=== PATIENT | female | born 1990 | race Hispanic/Latino ===

== ENCOUNTER 2018-05-18 19:47 | Emergency (ER) | payer BC, OTHER ==
[~2018-05-18] VITALS: Ht 157.5 cm; Wt 79.4 kg
[2018-05-18 20:32] VITALS: BP 127/84
[2018-05-18] MEDS ORDERED: CIPR7.5D OT (23:14)
--- NOTE | 2018-05-18 23:15 | ER.PDOC ---
General Chief Complaint: Earache Stated Complaint: EARACHE Time seen by MD: 23:00 Source: patient Exam Limitations: no limitations History of Present Illness Initial Comments Left ear pain for several days. Had right ear outer infection 2 weeks ago. wears ear plugs at work every day. no ear dc Timing/Duration: gradual Severity: mild Location of Pain: (L) Ear Allergies: Coded Allergies: banana (Unverified Allergy, Unknown, MOUTH ITCHES, 05/18/18) Uncoded Allergies: NKDA (Allergy, Unknown, 08/03/13) Home Meds No Active Prescriptions or Reported Meds Past Medical History Medical History: no pertinent history Surgical History: no surgical history LMP (females 10-50): last week Social History Smoking: non-smoker Alcohol Use: occassionally Drug Use: none Reviewed Nursing Reviewed: Vital Signs, Abn. Noted, Nursing Assessment Constitutional: denies no symptoms reported, denies see HPI, denies chills, denies diaphoresis, denies fever, denies malaise, denies weakness, denies other Eyes: denies no symptoms reported, denies see HPI, denies blindness, denies blurred vision, denies drainage, denies decreased acuity, denies foreign body sensation, denies inflammation, denies pain, denies photophobia, denies previous injury, denies shadows, denies tunnel vision, denies vision change, denies contact lenses, denies glasses, denies other Nose: denies no symptoms reported, denies see HPI, denies clots, denies congestion, denies epistaxis, denies pain, denies bloody discharge, denies clear discharge, denies purulent discharge, denies serosanguinous discharge, denies previous injury, denies other Mouth: denies no symptoms reported, denies see HPI, denies clots, denies loose teeth, denies pain, denies swelling, denies bloody discharge, denies clear discharge, denies purulent discharge, denies serosanguinous discharge, denies previous injury, denies other Throat: denies no symptoms reported, denies see HPI, denies pain, denies swelling, denies discharge, denies neck stiffness, denies hoarse, denies aphonia , denies muffled, denies painful swallowing, denies difficulty with fluids, denies previous injury, denies other Respiratory: denies no symptoms reported, denies see HPI, denies cough, denies orthopnea, denies shortness of breath, denies stridor, denies wheezing, denies other Cardiovascular: denies no symptoms reported, denies see HPI, denies chest pain , denies edema, denies palpitations, denies syncope, denies other Gastrointestinal: denies no symptoms reported, denies see HPI, denies abdominal pain, denies constipation, denies diarrhea, denies nausea, denies vomiting, denies other All Other Systems: Reviewed and Negative Physical Exam General Appearance: alert, no distress Ears: auricle, pain w/movement aucricle, erythema TM's: nml Mouth/Throat: lips/gums nml, pharynx nml Nose: nml inspection Head/Neck: atraumatic, neck nml inspection Eyes: eyes nml inspection, PERRL, no nystagmus Resp/CVS: no resp distress, lungs clear, heart sounds nml, reg. rate & rhythm Abdomen: non-tender, no organomegaly Skin Exam: Normal Color, Warm/Dry NEURO/PSYCH: oriented X3, mood/effect nml Departure Time of Disposition: 23:10 Disposition: 01 HOME, SELF-CARE Impression: Primary Impression: Otitis externa Condition: Stable Patient Instructions: Otitis Externa Referrals: PCP,UNKNOWN (PCP) PRIMARY CARE PROVIDER Scripts Ciprofloxacin Hcl/Dexameth (CIPRODEX OTIC SUSPENSION) 7.5 Ml Drops.susp 4 DROP OT BID PRN for infection, #7.5 MILLILITER Prov: PREET DE MD 05/18/18 Duration or Time Spent with Pa: 12 PREET DE MD May 18, 2018 23:15
[2018-05-18] MEDS ORDERED: MOTRIN ONE (23:18)
[2018-05-18 23:24] VITALS: BP 127/84
[2018-05-18] MEDS ORDERED: MOTRIN PO PRN (23:30)
== END 2018-05-18 23:31 | disposition home or self-care (01) ==
LOC: ER 19:47
DX: H60.92 Unspecified otitis externa, left ear (principal); Z91.018 Allergy to other foods
CPT/HCPCS: 99283

== ENCOUNTER 2019-09-21 05:25 | Inpatient (IN) | payer BC ==
[2019-09-21] VITALS (7 sets, daily range): BP systolic 115–136; BP diastolic 45–81
[~2019-09-21] VITALS: Ht 157.5 cm; Wt 86.0 kg
[~2019-09-21 05:25] MED LIST: CIPR7.5D OT
[2019-09-21 05:52] LABS: BILIRUBIN,URINE NEGATIVE (NEGATIVE); UROBILINOGEN,URINE NORMAL (NEGATIVE)
[2019-09-21] MEDS ORDERED: NS 1000ML 1,000 ML IV STA (05:58)
[2019-09-21] MEDS ORDERED: TORADOL IV STA (05:58)
[2019-09-21] MEDS ORDERED: ZOFRAN 4 MG/2 ML VIAL IV STA (05:58)
[2019-09-21 05:59] LABS: APPEARANCE,URINE CLOUDY (CLEAR); UA COLOR YELLOW (YELLOW)
[2019-09-21] MEDS ORDERED: ZOFRAN 4 MG/2 ML VIAL ONE ×2 (06:02→08:29)
[2019-09-21] MEDS ORDERED: NS 1000ML 1,000 ML ONE (06:02)
[2019-09-21] MEDS ORDERED: TORADOL ONE (06:02)
[2019-09-21 06:16] LABS: BASOPHIL % 0.1 % (0.0-0.2); EOSINOPHIL % 0.2 % (0.0-5.0); LYMPHOCYTES # 0.8 10^3/uL (1.0-4.8); LYMPHOCYTES % 4.9 % (24.0-44.0); MONOCYTES # 0.7 10^3/uL (0.3-0.8); MONOCYTES % 4.4 % (5.0-12.0); NEUTROPHIL # 14.8 10^3/uL (1.8-7.7); NEUTROPHILS % 90.2 % (41.0-85.0); RED CELL DISTRIBUTION WIDTH 12.1 % (11.5-14.5)
[2019-09-21 06:31] LABS: CARBON DIOXIDE 26.9 mmol/L (20.0-32)
--- NOTE | 2019-09-21 06:38 | ER.PDOC ---
General Chief Complaint: Requesting Medical Care Stated Complaint: ABD PAIN Time seen by MD: 06:37 Source: patient Exam Limitations: no limitations History of Present Illness Initial Comments Nausea/vomiting/diarrhea and abdominal pain. No fever or chills. Severity/Quality: moderate Abdominal Pain Onset Location: Generalized Abdomen Associated Symptoms (vomiting): freq vomitng Associated Symptoms (diarrhea): watery Allergies: Coded Allergies: banana (Unverified Allergy, Unknown, MOUTH ITCHES, 05/18/18) Uncoded Allergies: NKDA (Allergy, Unknown, 08/03/13) Home Meds Active Scripts Ciprofloxacin Hcl/Dexameth (CIPRODEX OTIC SUSPENSION) 7.5 Ml Drops.susp, 4 DROP OT BID PRN for infection, #7.5 MILLILITER Prov:PREET DE MD 05/18/18 Vital Signs First Vital Signs Date Time Temp Pulse Resp B/P (MAP) Pulse Ox O2 Delivery O2 Flow Rate FiO2 09/21/19 05:39 98.0 89 18 99 Last Vital Signs Date Time Temp Pulse Resp B/P (MAP) Pulse Ox O2 Delivery O2 Flow Rate FiO2 09/21/19 05:39 98.0 89 18 09/21/19 05:39 99 Past Medical History Medical History: no pertinent history Surgical History: no surgical history Social History Alcohol Use: occassionally Drug Use: none Constitutional: no symptoms reported Respiratory: no symptoms reported Cardiovascular: no symptoms reported Gastrointestinal: see HPI Genitourinary: no symptoms reported All Other Systems: Reviewed and Negative Physical Exam General Appearance: No Apparent Distress, WD/WN Neck: Non-Tender, Full Range of Motion, Supple, Normal Inspection Respiratory: chest non-tender, lungs clear, normal breath sounds, no respira tory distress, no accessory muscle use Cardiovascular: Normal Peripheral Pulses, Regular Rate, Rhythm, No Edema, No Gallop, No JVD, No Murmur Gastrointestinal: Normal Bowel Sounds, No Organomegaly, No Pulsatile Mass, Guarding, Tenderness (generalized) Back: Normal Inspection, No CVA Tenderness, No Vertebral Tenderness Extremities: Normal Range of Motion, Non-Tender, Normal Inspection, No Pedal Edema, No Calf Tenderness, Normal Capillary Refill, Pelvis Stable 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 (09/21/19 05:58) 0.9 % Sodium Chloride (Ns 1000ml) (09/21/19 05:58) Ketorolac Tromethamine (Toradol) (09/21/19 05:58) Ondansetron Hcl/Pf (Zofran 4 Mg/2 Ml Via (09/21/19 05:58) Urine Culture (09/21/19 05:45) 0.9 % Sodium Chloride (Ns 1000ml) (09/21/19 06:02) Ondansetron Hcl/Pf (Zofran 4 Mg/2 Ml Via (09/21/19 06:02) Ketorolac Tromethamine (Toradol) (09/21/19 06:02) Blood Culture (09/21/19 07:29) Lactic Acid(Ml) (09/21/19 07:29) Vital Signs Date Time Temp Pulse Resp B/P (MAP) Pulse Ox O2 Delivery O2 Flow Rate FiO2 09/21/19 05:39 98.0 89 18 09/21/19 05:39 98.0 89 18 99 Administered Medications Medications (Trade) Dose Ordered Sig/Mare Route PRN Reason Start Time Stop Time Status Last Admin Dose Admin Ketorolac Tromethamine (Toradol) 30 mg STAT STAT IV 09/21/19 05:58 09/21/19 06:00 DC 09/21/19 06:24 30 MG Ondansetron HCl (Zofran 4 Mg/2 ml Vial) 4 mg STAT STAT IV 09/21/19 05:58 09/21/19 06:00 DC 09/21/19 06:25 4 MG Sodium Chloride 1,000 ml @ 1,200 mls/hr Q50M STAT IV 09/21/19 05:58 09/21/19 06:47 DC 09/21/19 06:24 1,200 MLS/HR Laboratory Tests Test 09/21/19 05:45 09/21/19 06:11 09/21/19 06:27 Urine Collection Type VOID Urine Color YELLOW (YELLOW) Urine Appearance CLOUDY (CLEAR) H Urine Bilirubin NEGATIVE MG/DL (NEGATIVE) Urine Ketones NEGATIVE (NEGATIVE) Urine Specific Morgan 1.025 (1.005-1.035) Urine pH 5 (5.0-6.0) Urine Protein 15 mg/dL (NEGATIVE) H Urine Urobilinogen NORMAL (NEGATIVE) Urine Nitrate NEGATIVE (NEGATIVE) Urine Leukocyte Esterase NEGATIVE (NEGATIVE) Urine Blood 25 1+ (NEGATIVE) H Urine RBC 2-5 RBC/HPF (NONE SEEN) Urine WBC 0-2 WBC/HPF (0-2) Urine Squamous Epithelial Cells FEW #/HPF (FEW) Urine Bacteria MANY (NONE SEEN) H Urine Glucose NORMAL (NEGATIVE) Urine HCG, Qualitative NEGATIVE (NEGATIVE) White Blood Count 16.4 10^3/uL (4.5-11.0) H Red Blood Count 4.32 10^6/uL (4.00-5.20) Hemoglobin 13.4 g/dL (12.0-15.0) Hematocrit 38.3 % (36.0-46.0) Mean Corpuscular Volume 88.7 fL (78-100) Mean Corpuscular Hemoglobin 31.0 pg (26-34) Mean Corpuscular Hemoglobin Concent 35.0 g/dL (33-37) Red Cell Distribution Width 12.1 % (11.5-14.5) Platelet Count 219 10^3/uL (150-400) Mean Platelet Volume 10.9 fL (7.8-11.0) Neutrophils (%) (Auto) 90.2 % (41.0-85.0) *H Lymphocytes (%) (Auto) 4.9 % (24.0-44.0) *L Monocytes (%) (Auto) 4.4 % (5.0-12.0) L Neutrophils # (Auto) 14.8 10^3/uL (1.8-7.7) H Lymphocytes # (Auto) 0.8 10^3/uL (1.0-4.8) L Monocytes # (Auto) 0.7 10^3/uL (0.3-0.8) Absolute Immature Granulocyte (auto 0.04 10^3 u/L (0-2) Immature Granulocytes % 0.20 % (0.00-0.50) Eosinophils % 0.2 % (0.0-5.0) Basophils % 0.1 % (0.0-0.2) Basophils # 0.0 10^3/uL (0.0-0.1) Eosinophil Count 0.0 10^3/uL (0.0-0.2) Prothrombin Time 10.2 SEC (9.4-11.5) Prothrombin Time INR (Non-Therap) 1.0 Activated Partial Thromboplast Time 24.2 SEC (24.67-30.72) Sodium Level 136 mmol/L (132-145) Potassium Level 4.1 mmol/L (3.6-5.2) Chloride Level 102.0 mmol/L (96-109) Carbon Dioxide Level 26.9 mmol/L (20.0-32) Anion Gap 11.2 Blood Urea Nitrogen 11 mg/dL (7-18) Creatinine 0.77 mg/dL (0.59-1.40) Estimated GFR () 108.0 (>/=60) BUN/Creatinine Ratio 14.0 Glucose Level 119 mg/dL (70-110) H Calcium Level 9.0 mg/dL (8.4-10.5) Total Bilirubin 0.4 mg/dL (0.2-1.0) Aspartate Amino Transferase (AST) 12 U/L (0-35) Alanine Aminotransferase (ALT) 20 U/L (12-78) Alkaline Phosphatase 82 U/L (50-136) Total Protein 7.1 g/dL (6.4-8.2) Albumin 4.0 g/dL (3.4-5.0) Globulin 3.1 Amylase Level 136 U/L (25-115) H Lipase 116 U/L (114-286) Helicobacter pylori Screen POSITIVE (NEGATIVE) Differential Total Cells Counted 100 #CELLS Segmented Neutrophils 88 % (31-76) H Lymphocytes 10 % (25-36) L Monocytes 2 % (3-9) L Differential Comment NORMAL Platelet Estimate ADEQUATE Platelet Morphology NORMAL Blood Morphology Comment NORMAL MORPHOLOGY EKG/XRAY/CT/US CT Comments: Findings consistent with acute appendicitis without rupture or abscess. Departure Time of Disposition: 07:37 Disposition: 01 HOME, SELF-CARE Impression: Primary Impression: Acute appendicitis Additional Impressions: Gastroenteritis UTI (urinary tract infection) Condition: Stable Referrals: PCP,UNKNOWN (PCP) PRIMARY CARE PROVIDER Comments Admitted to Dr. Maldonado and spoke with Dr. Lopez who took patient to Surgery. Duration or Time Spent with Pa: 45 mins Problem Qualifiers Primary Impression: Acute appendicitis Acute appendicitis type: unspecified acute appendicitis type Qualified Codes: K35.80 - Unspecified acute appendicitis Additional Impressions: UTI (urinary tract infection) Urinary tract infection type: site unspecified Hematuria presence: with hematuria Qualified Codes: N39.0 - Urinary tract infection, site not specified; R31.9 - Hematuria, unspecified CORIN HAN MD Sep 21, 2019 06:38
[2019-09-21 06:43] LABS: DIFFERENTIAL COMMENT NORMAL; LYMPHOCYTE 10 % (25-36); MONOCYTE 2 % (3-9); SEGMENTED NEUTROPHILS 88 % (31-76)
--- NOTE | 2019-09-21 07:15 | DIREP ---
PROCEDURE:CT ABDOMEN/PELVIS W/ CONTRAST COMPARISON:None. INDICATIONS:Generalized abdominal pain TECHNIQUE:Axial images were created through the abdomen and pelvis with non-ionic intravenous contrast material. Oral contrast was administered. Sagittal and coronal reconstructions were performed from source images. FINDINGS: LUNG BASES:Normal. No visible pulmonary or pleural disease. LIVER:Normal. No significant liver lesions are identified. BILIARY:Normal. No visible dilatation or calcification. PANCREAS:Normal. No lesion, fluid collection, ductal dilatation, or atrophy. SPLEEN:Normal. No enlargement or focal lesion. ADRENALS:Normal. No mass or enlargement. URINARY TRACT:Normal. No focal lesions or hydronephrosis. AORTA/VASCULAR:Normal. No aneurysm. RETROPERITONEUM:Normal. No mass or adenopathy. BOWEL/MESENTERY:Appendix is dilated with thickened and enhancing wall measuring 12 mm in diameter consistent with acute appendicitis. No free air or free fluid to suggest perforation. No bowel obstruction. There is mild wall thickening of the ascending colon and transverse colon may be secondary to poor distention or colitis. and increased ABDOMINAL WALL:Normal. No mass or hernia. PELVIC ORGANS:3.2 cm left ovarian probable functional cyst. BONES:Normal for age. No bony lesion or acute fracture. OTHER:Negative. CONCLUSION: 1. Findings consistent with acute appendicitis without rupture or abscess. Equivocal colitis. Dictated by: Blue Angulo M.D. on 09/21/2019 at 07:10 AM
--- NOTE | 2019-09-21 07:36 | NUR ---
RADHA DOCTOR GUILLE SPOKE WITH RADHA WILL SEE PATIENT AND WANTS EHABDOULAYEIEME TO ADMIT AND HER WILL CONSULT.
--- NOTE | 2019-09-21 07:36 | NUR ---
NATALIIA TERAN MBA SPOKE WITH DOCTOR WILLIAM WILL ADMIT.
--- NOTE | 2019-09-21 07:42 | NUR ---
RITAMED HERE TO SEE PATIENT.
[2019-09-21] MEDS ORDERED: LACTATED RINGERS 1,000 ML IV STA (08:01)
[2019-09-21] MEDS ORDERED: ZOSYN 3.375 GM 3.375 GM in NS 100ML 100 ML IV STA (08:01)
[2019-09-21] MEDS ORDERED: LACTATED RINGERS 1,000 ML ONE (08:08)
[2019-09-21] MEDS ORDERED: NS 100ML 100 ML IV ONE (08:10)
--- NOTE | 2019-09-21 08:23 | PRM.CONS ---
Consultation Reason for Consult: Reason for Consultation: Abdominal pain, vomiting, diarrhea History of Present Illness History of Patient Comments The patient is complaining of abdominal pain, vomiting and diarrhea that started last night. Pain is diffuse but is slightly worse in the right lower quadrant. Increased on movement. She has vomited several times as well. Also had several loose bowel movements. She initially thought that she had food poisoning, but the symptoms have not improved. Review of Systems Constitutional: Fever, Chills, Sweats, Weakness, Malaise, Other Eyes: No: Pain, Vision change, Conjunctivae inflammation, Eyelid inflammation, Other, Redness ENT: No: Ear pain, Ear discharge, Nose pain, Nose discharge, Nose congestion, Mouth pain, Mouth swelling, Throat pain, Throat swelling, Other Respiratory: No: Cough, Dry, Shortness of breath, SOB with excertion, Wheezing, Hemoptysis, Pleuritic Pain, Sputum, Wheezing, Other Cardiovascular: No: Chest Pain, Palpitations, Orthopnea, Paroxysmal Noc. Dyspnea, Edema, Lt Headedness, Other Gastrointestinal: Nausea, Vomiting, Abdominal Pain, Diarrhea, Constipation, Melena, Hematochezia, Other Genitourinary: No Dysuria, No Frequency, No Incontinence, No Hematuria, No Retention, No Other Musculoskeletal: No: other, neck pain, shoulder pain, arm pain, back pain, hand pain, leg pain, foot pain Skin: No: Rash, Lesions, Jaundice, Bruising, Other Neurological: No: Weakness, Numbness, Incoordination, Change in speech, Confusion, Seizures, Other Other LMP one month ago. Regular Allergies: Coded Allergies: banana (Unverified Allergy, Unknown, MOUTH ITCHES, 05/18/18) Uncoded Allergies: NKDA (Allergy, Unknown, 08/03/13) Scheduled PRN Ciprofloxacin Hcl/Dexameth (Ciprodex Otic Suspension), 4 DROP OT BID PRN for infection VTE VTE Risk Score VTE Risk: Score 0-1 = Low Risk (Aggressive mobilization; early ambulation; no VTE prophylaxis required) Score 2: Moderate Risk (Intermittent/Pneumatic Compression Device OR Lovenox/Heparin/Coumadin) Score 3-4: High Risk (Intermittent/Pneumatic Compression Device AND Lovenox/Heparin/Coumadin) Score > or =5: Highest Risk (Intermittent/Pneumatic Compression Device AND Lovenox/Heparin/Coumadin) Antico:Hep/LMWH/Coum/Xarelto: No Mechanical device ordered: No Assessment/Plan Assessment/Plan Assessment/Plan Afebrile Vital signs are stable. Abdomen is not distended. It is soft. Mild tenderness in the right lower quadrant. No guarding or rebound. CT shows acute appendicitis with dilatation of the appendix to 12 mm. WBC is elevated to 16. Patient History: Alzheimer's disease Unknown Plan For lap appendectomy IV Zosyn given test negative. EFRAIN GARCIA MD Sep 21, 2019 08:23
[2019-09-21] MEDS ORDERED: LIDOCAINE 2% VIAL ONE (08:27)
[2019-09-21] MEDS ORDERED: ZEMURON IV ONE (08:28)
[2019-09-21] MEDS ORDERED: QUELICIN ONE (08:28)
[2019-09-21] MEDS ORDERED: SUBLIMAZE ONE (08:28)
[2019-09-21] MEDS ORDERED: DIPRIVAN IV ONE (08:28)
[2019-09-21] MEDS ORDERED: SODIUM CHLORIDE IR ONE (08:29)
[2019-09-21] MEDS ORDERED: DECADRON ONE (08:29)
[2019-09-21] MEDS ORDERED: NEOSTIGMINE ONE (08:29)
[2019-09-21] MEDS ORDERED: DILAUDID ONE (08:39)
[2019-09-21] MEDS ORDERED: SODIUM CHLORIDE IRR BAG 1,000 ML ONE (09:34)
[2019-09-21] MEDS ORDERED: GENTAMICIN 80 MG/NS 100 ML PB 100 ML IV ONE (09:34)
[2019-09-21] MEDS ORDERED: XOPENEX IH PRN (10:30)
[2019-09-21] MEDS ORDERED: DILAUDID IV PRN (10:30)
[2019-09-21] MEDS ORDERED: LACTATED RINGERS 1,000 ML SCH (10:30)
[2019-09-21] MEDS ORDERED: DEMEROL IV PRN (10:30)
[2019-09-21] MEDS ORDERED: PHENERGAN IV PRN (10:30)
[2019-09-21] MEDS ORDERED: SUBLIMAZE IV PRN (10:30)
[2019-09-21] MEDS ORDERED: LORA10TA75 PO (10:50)
[2019-09-21] MEDS ORDERED: ALBU8.5H7 IH (10:50)
--- NOTE | 2019-09-21 11:05 | NUR ---
SEE SPECIAL VS RECORD IN CHART
--- NOTE | 2019-09-21 11:05 | NUR ---
SEE SPECIAL VS RECORD IN CHART Addendum: 09/21/19 at 1750 by Kelsi Pascual RN - OB/L&Carlos/ALYSSA RINCON Amended: Links added.
--- NOTE | 2019-09-21 11:05 | NUR ---
TO ROOM 330 VIA OR AND RECEIVED REPORT OF PT. S/O PRESENT. VS AND ASSESSMENT COMPLETED.
--- NOTE | 2019-09-21 11:20 | NUR ---
SO GIVING SPRITE AND REPORTS 5/10 PAIN
[2019-09-21] MEDS ORDERED: ZOFRAN 4 MG/2 ML VIAL IV PRN (11:30)
[2019-09-21] MEDS ORDERED: NORCO 5MG PO PRN (11:30)
--- NOTE | 2019-09-21 11:35 | NUR ---
RESTING QUIETLY IN BED. SITTING UP IN BED TALKING WITH S/O AND NURSE. REPORTS 5/10 PAIN
--- NOTE | 2019-09-21 11:39 | OPH ---
DATE OF SURGERY: 09/21/2019 PREOPERATIVE DIAGNOSIS: Acute appendicitis. POSTOPERATIVE DIAGNOSIS: Acute appendicitis. PROCEDURE: Laparoscopic appendectomy. SURGEON: Dr. Maged Lopez. ANESTHESIA: General with endotracheal intubation. JUSTIFICATION FOR PROCEDURE: The patient was admitted via the Emergency Room with the complaint of abdominal pain, nausea and vomiting. A CT scan was done that showed acute appendicitis with the appendix dilated at 12 mm. There was no perforation. The WBC count was elevated to 16,000. The diagnosis was discussed with the patient. Laparoscopic appendectomy was offered as a treatment. The procedure was explained in detail. Risks and benefits of the operation were discussed. These included, but were not limited to bleeding, infection, nonhealing of the wound, possible need for open operation and possible complications such as vascular and bowel injury. The patient had the opportunity to ask questions. These were answered to her satisfaction. The patient agreed to proceed with the operation. DESCRIPTION OF PROCEDURE: After general anesthesia was administered, a Pierce catheter was inserted in the urinary bladder and clear urine was obtained. The abdominal wall was prepared with ChloraPrep and draped. Initial incision was made above the umbilicus in the midline using a #15 blade. Incision was deepened. Subcutaneous fat was divided and linea alba was identified. Incision was made in the linea alba to expose the peritoneum. The peritoneal membrane was held between 2 hemostats and opened with Metzenbaum scissors. A Finger was introduced into the opening to make sure there were no adhesions. There were none. Stay sutures of 0 Vicryl were applied to each side of the opening in linea alba. Joseph port was introduced into the peritoneal cavity and tied in place with Vicryl stay sutures. The obturator was removed and carbon dioxide insufflation was started with a pressure set at 15 mm and high flow. A 5 mm 0-degree laparoscope was introduced through the Joseph port. The operative findings were as follows: The appendix was inflamed. There was a small amount of thin exudative fluid in the right lower quadrant. All the fluid was suctioned out. The appendix was pre-ileal in position. The patient was placed in deep Trendelenberg position with the left side down. Appropriate precautions were taken to protect the pressure areas. A 5 mm port was inserted in the supraumbilical region under direct vision. Another 5 mm port was inserted in the left lower quadrant under direct vision. A [place] grasping forceps was introduced through the suprapubic port and applied to the mesentery of the appendix. The mesoappendix was then carefully divided using Harmonic scalpel. The base of the appendix was completely freed of any fat. An Endoloop was passed through the umbilical port and was tied at the level of the appendix and cecal confluence. Two more Endoloops were similarly applied. The appendix was then divided between the distal most and middle suture. An Endopouch was passed through the umbilical port and opened and the appendix was allowed to fall into it. The appendix was then removed. The camera was introduced through the umbilical port. The patient was placed in neutral position. The right lower quadrant was irrigated with normal saline. All the fluid was suctioned out. The 5 mm ports were removed under direct vision. The Jsoeph port and camera were removed and carbon dioxide was allowed to escape. The defect in linea alba was closed with interrupted sutures of 0 Vicryl. Wound was irrigated with normal saline. A total of 30 mL of 0.25% Marcaine was infiltrated in the skin edges. Skin was approximated with nicolas. The patient tolerated the procedure well and was extubated and transferred to recovery in stable condition. ESTIMATED BLOOD LOSS: 2 mL. SPECIMEN: Appendix. Maged Lopez MD DR: /mili JOB# [id number] TAYA
--- NOTE | 2019-09-21 11:50 | NUR ---
SITTING UP IN BED EATING POPSICLE. REPORTS PAIN 5/10
--- NOTE | 2019-09-21 12:05 | NUR ---
SITTING UP IN BED WATCHING TV AND TALKING WITH S/O AND DRINKING SPRITE. REPORTS 5/10 PAIN
--- NOTE | 2019-09-21 12:14 | NUR ---
PT SITTING UP IN BED TALKING WITH S/O. D FOSTER FROM RT PRESENT PERFORMING IS PROCEDURE WITH TEACHING. PT VOICED UNDERSTANDING. DRINKING SPRITE
--- NOTE | 2019-09-21 13:00 | NUR ---
ASSISTED TO BR AND VOIDED CL YELLOW URINE.
--- NOTE | 2019-09-21 13:30 | NUR ---
AMB IN ROOM WITH ASSIST WITHOUT DIFFICULTY.
--- NOTE | 2019-09-21 13:55 | NUR ---
RESTING QUIETLY IN BED. EYES CLOSED AND RESP UNLABORED. DENIES COMPLAINTS. PAIN 0/10.
[2019-09-21] MEDS: HNS 1000ML/KCL 20MEQ 1,000 ML IV SCH (13:59)
[2019-09-21] MEDS: ZOSYN 3.375 GM 3.375 GM in NS 100ML 100 ML IV SCH ×2 (14:49→20:17)
[2019-09-21] MEDS: NORCO 5MG PO PRN ×2 (14:59→20:17)
--- NOTE | 2019-09-21 14:59 | NUR ---
NORCO 5MG PO PER PT REQUEST FOR ABD CRAMPING. PAIN 05/10
--- NOTE | 2019-09-21 15:30 | NUR ---
PT SITTING UP IN BED TALKING WITH VISITOR. REPORT PAIN 2/10. UP TO BR. VOIDED 250CC CL YELLOW URINE
--- NOTE | 2019-09-21 17:00 | NUR ---
SUPPER TRAY SERVED. VS TAKEN. PT DENIES COMPLAINTS
--- NOTE | 2019-09-21 18:00 | NUR ---
SITTING UP IN BED TALKING ON PHONE. DENIES COMPLAINTS
--- NOTE | 2019-09-21 20:51 | PCM.HP ---
History of Present Illness Hx of Present Illness Abdominal pain, vomiting and diarrhea. The patient has been having abdominal pain for the last 24 hours or so. All over the abdomen. Worse in the right lower quadrant. Has vomited several times and also had multiple loose stools. Past Medical History Hx Last Menstrual Period: 2018 Travel History EBOLA RISK:Travel to/contact w: No Is pt experiencing any Ebola s: Yes Review of Systems Constitutional: Fever, Chills, Sweats, Weakness, Malaise, Other Allergies: Coded Allergies: banana (Unverified Allergy, Unknown, MOUTH ITCHES, 05/18/18) Uncoded Allergies: NKDA (Allergy, Unknown, 08/03/13) Scheduled Loratadine (Claritin), 1 TAB PO QD Scheduled PRN Albuterol Sulfate (Proair Hfa), 8.5 GM IH PRN PRN for SHORTNESS BREATH Discontinued Medications Ciprofloxacin Hcl/Dexameth (Ciprodex Otic Suspension), 4 DROP OT BID PRN for i nfection Discontinued Reason: Discontinue VTE VTE Risk Total Score: 3 VTE Risk Score VTE Risk: Score 0-1 = Low Risk (Aggressive mobilization; early ambulation; no VTE prophylaxis required) Score 2: Moderate Risk (Intermittent/Pneumatic Compression Device OR Lovenox/Heparin/Coumadin) Score 3-4: High Risk (Intermittent/Pneumatic Compression Device AND Lovenox/Heparin/Coumadin) Score > or =5: Highest Risk (Intermittent/Pneumatic Compression Device AND Lovenox/Heparin/Coumadin) Antico:Hep/LMWH/Coum/Xarelto: No Mechanical device ordered: No VTE VTE Present on Admission: No Currently receiving anticoagul: No VTE Risk Total Score: 3 Antico:Hep/LMWH/Coum/Xarelto: No Mechanical device ordered: No Exam Vital Signs Vital Signs Date Time Temp Pulse Resp B/P (MAP) Pulse Ox O2 Delivery O2 Flow Rate FiO2 09/21/19 20:10 98.6 74 16 118/62 (80) 96 Room Air 09/21/19 14:05 0.00 General Appearance: Alert, Oriented X3, Cooperative, mild distress HEENT: Mucous membr. moist/pink Respiratory: Normal air movement Cardiovascular: Regular rate Abdominal: Normal bowel sounds, Other (Tender in the right lower quadrant) Extremities: No clubbing Skin: No rash Neuro: Normal gait Psych/Mental Status: Mental status NL Assessment/Plan Assessment/Plan Assessment/Plan For lap appendectomy IV Zosyn given test negative. Patient History: Alzheimer's disease No known health problems 32 MOTHER 33 FATHER G8 BROTHER G8 BROTHER V19 CHILD Unknown Plan For lap appendectomy IV Zosyn given test negative. EFRAIN GARCIA MD Sep 21, 2019 20:51
--- NOTE | 2019-09-21 22:26 | NUR ---
DR. RIVAS NOTIFIED PT HAVING GAS PAIN ORDER RECEIVED FOR SIMETHICONE 160MG PO Q 1 HOUR PRN GAS PAIN.
[2019-09-21] MEDS: GENASYME PO PRN (22:30)
--- NOTE | 2019-09-21 22:31 | NUR ---
SIMETHICONE GIVEN FOR GAS PAIN.
[2019-09-22 00:03] VITALS: BP 106/60
[2019-09-22] MEDS: NORCO 5MG PO PRN ×2 (00:25→10:48)
[2019-09-22] MEDS: ZOSYN 3.375 GM 3.375 GM in NS 100ML 100 ML IV SCH (01:26)
[2019-09-22] MEDS: HNS 1000ML/KCL 20MEQ 1,000 ML IV SCH ×2 (02:40→14:10)
[2019-09-22 05:43] VITALS: BP 99/60
--- NOTE | 2019-09-22 07:04 | PRM.PN ---
Progress Note Subjective Date: Sep 22, 2019 Time: 07:02 Physician Notes: s/p Lap appendectomy PO #1. Feels better. Ambulating. Tolerating clear liquids. Objective Review IO, Exams,& Results Problems Acute/Active Problems: (1) Acute appendicitis (2) Gastroenteritis (3) UTI (urinary tract infection) Vital Signs Date Time Temp Pulse Resp B/P (MAP) Pulse Ox O2 Delivery O2 Flow Rate FiO2 09/22/19 05:43 98.5 56 16 99/60 (73) 95 Room Air 09/21/19 14:05 0.00 Intake and Output 09/22/19 07:00 Intake Total 5208 ml Output Total 3375 ml Balance 1833 ml Intake Oral 1788 ml Electrolyte Solution 2220 ml IV Total 200 ml Other 1000 ml Output Urine Total 3375 ml Laboratory Tests Test 09/21/19 05:45 09/21/19 06:11 09/21/19 06:27 09/21/19 07:40 Urine Collection Type VOID Urine Color YELLOW Urine Appearance CLOUDY Urine Bilirubin NEGATIVE MG/DL Urine Ketones NEGATIVE Urine Specific [place] 1.025 Urine pH 5 Urine Protein 15 mg/dL Urine Urobilinogen NORMAL Urine Nitrate NEGATIVE Urine Leukocyte Esterase NEGATIVE Urine Blood 25 1+ Urine RBC 2-5 RBC/HPF Urine WBC 0-2 WBC/HPF Urine Squamous Epithelial Cells FEW #/HPF Urine Bacteria MANY Urine Glucose NORMAL Urine HCG, Qualitative NEGATIVE White Blood Count 16.4 10^3/uL Red Blood Count 4.32 10^6/uL Hemoglobin 13.4 g/dL Hematocrit 38.3 % Mean Corpuscular Volume 88.7 fL Mean Corpuscular Hemoglobin 31.0 pg Mean Corpuscular Hemoglobin Concent 35.0 g/dL Red Cell Distribution Width 12.1 % Platelet Count 219 10^3/uL Mean Platelet Volume 10.9 fL Neutrophils (%) (Auto) 90.2 % Lymphocytes (%) (Auto) 4.9 % Monocytes (%) (Auto) 4.4 % Neutrophils # (Auto) 14.8 10^3/uL Lymphocytes # (Auto) 0.8 10^3/uL Monocytes # (Auto) 0.7 10^3/uL Absolute Immature Granulocyte (auto 0.04 10^3 u/L Immature Granulocytes % 0.20 % Eosinophils % 0.2 % Basophils % 0.1 % Basophils # 0.0 10^3/uL Eosinophil Count 0.0 10^3/uL Prothrombin Time 10.2 SEC Prothrombin Time INR (Non-Therap) 1.0 Activated Partial Thromboplast Time 24.2 SEC Sodium Level 136 mmol/L Potassium Level 4.1 mmol/L Chloride Level 102.0 mmol/L Carbon Dioxide Level 26.9 mmol/L Anion Gap 11.2 Blood Urea Nitrogen 11 mg/dL Creatinine 0.77 mg/dL Estimated GFR () 108.0 BUN/Creatinine Ratio 14.0 Glucose Level 119 mg/dL Calcium Level 9.0 mg/dL Total Bilirubin 0.4 mg/dL Aspartate Amino Transf (AST/SGOT) 12 U/L Alanine Aminotransferase (ALT/SGPT) 20 U/L Alkaline Phosphatase 82 U/L Total Protein 7.1 g/dL Albumin 4.0 g/dL Globulin 3.1 Amylase Level 136 U/L Lipase 116 U/L Helicobacter pylori Screen POSITIVE Differential Total Cells Counted 100 #CELLS Segmented Neutrophils 88 % Lymphocytes 10 % Monocytes 2 % Differential Comment NORMAL Platelet Estimate ADEQUATE Platelet Morphology NORMAL Blood Morphology Comment NORMAL MORPHOLOGY Lactic Acid Level 1.7 mmol/L Current Medications Medications (Trade) Dose Ordered Sig/Mare PRN Reason Start Time Stop Time Status Last Admin Acetaminophen/ Hydrocodone Bitart ([place] 5mg) 1 ea Q4HR PRN PAIN 4-6 09/21/19 11:30 10/21/19 11:29 09/22/19 00:25 Acetaminophen/ Hydrocodone Bitart ([place] 5mg) 2 ea Q4HR PRN PAIN 7-10 09/21/19 11:30 10/21/19 11:29 Enoxaparin Sodium (Lovenox) 40 mg Q24HRS 09/22/19 09:00 10/22/19 08:59 Levalbuterol HCl (Xopenex) 1.25 mg OT PRN WHEEZING 09/21/19 10:30 09/26/19 10:29 Ondansetron HCl (Zofran 4 Mg/2 ml Vial) 4 mg Q4H PRN NAUSEA / VOMITING 09/21/19 11:30 10/21/19 11:29 Potassium Chloride/Sodium Chloride 1,000 ml @ 75 mls/hr [id number] 09/21/19 11:30 10/21/19 11:29 09/22/19 02:40 Simethicone (Genasyme) 160 mg Q1HR PRN gas 09/21/19 22:30 10/21/19 22:29 UNV 09/21/19 22:30 Orders - EFRAIN GARCIA MD Clear Liquid Diet (09/21/19 Dinner) Potassium Chloride-0.45% Nacl (Hns 1000m (09/21/19 11:30) Rt Request For Service (09/21/19 ) Scd's While In Bed (09/21/19 11:17) Enoxaparin Sodium (Lovenox) (09/22/19 09:00) Hydrocodone/Acetaminophen ([place] 5mg) (09/21/19 11:30) Hydrocodone/Acetaminophen ([place] 5mg) (09/21/19 11:30) Ondansetron Hcl/Pf (Zofran 4 Mg/2 Ml Via (09/21/19 11:30) Cbc W/O Diff (09/22/19 07:00) Heart: Regular rate Abdomen: Normal bowel sounds, Soft, Other (Dressings in place) Lungs: Normal air movement Skin: No rashes Assessment & Plan: Assessment Improving Plan 1) Can go home today. 2) No PO antibiotics needed for discharge 3) Follow up with surgery clinic for removal of nicolas. EFRAIN GARCIA MD Sep 22, 2019 07:04
[2019-09-22 08:07] LABS: BASOPHIL % 0.1 % (0.0-0.2); EOSINOPHIL % 0.3 % (0.0-5.0); LYMPHOCYTES # 1.7 10^3/uL (1.0-4.8); LYMPHOCYTES % 18.3 % (24.0-44.0); MEAN CORP HGB 31.1 pg (26-34); MONOCYTES # 0.8 10^3/uL (0.3-0.8); MONOCYTES % 8.5 % (5.0-12.0); NEUTROPHIL # 6.9 10^3/uL (1.8-7.7); NEUTROPHILS % 72.7 % (41.0-85.0); RED CELL DISTRIBUTION WIDTH 12.4 % (11.5-14.5)
[2019-09-22] MEDS ORDERED: LOVENOX SQ SCH (09:00)
[2019-09-22 09:03] VITALS: BP 119/67
--- NOTE | 2019-09-22 09:41 | NUR ---
ambulation patient ambulating in the hallway. steady gait noted.
--- NOTE | 2019-09-22 11:00 | NUR ---
DISCHARGE PLAN CM VISITED WITH PATIENT REGARDING D/C PLAN AND GOALS. PATIENT LIVES AT HOME WITH HER SIGNIFICANT OTHER AND DAUGHTER. SHE IS INDEPENDENT OF ADLS AND DENIES THE USE OF DME IN THE HOME. 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 SHE IS FINANCIALLY ABLE TO PAY FOR HER MEDICATION. HER PCP IS Roselyn HEATH NP. DISCHARGE GOAL IS FOR PATIENT TO D/C BACK HOME TO ROUTINE CARE WITH HER SIG OTHER AND DAUGHTER. CM WILL CONTINUE TO MONITOR NEEDS UNTIL D/C .
--- NOTE | 2019-09-22 11:40 | NUR ---
sutures 3 sutures removed from right lower extremity and 3 sutures removed from mid back per Dr. Padilla order.
[2019-09-22] MEDS: GENASYME PO PRN (11:44)
--- NOTE | 2019-09-22 12:34 | PRM.DC ---
Post-OP Discharge Summary Date of Arrival on Unit: Sep 21, 2019 Reason for Visit: Abdominal pain History of Present Illness Pre-Operative DX: Appendicitis Post-OP DX: Appendicits Physician Notes: Pt came in with acute abdominal pain, fever and elevated white count. General surgery consulted, and had Lap Appendectomy. Pt did very well, and tolerating food already. WBC back to normal. Objective Review IO, Exams,& Results Problems Acute/Active Problems: (1) Acute appendicitis (2) Gastroenteritis Vital Signs Date Time Temp Pulse Resp B/P (MAP) Pulse Ox O2 Delivery O2 Flow Rate FiO2 09/22/19 09:03 98.7 94 16 119/67 (84) 96 Room Air 09/21/19 14:05 0.00 Intake and Output 09/22/19 07:00 Intake Total 5208 ml Output Total 3375 ml Balance 1833 ml Intake Oral 1788 ml Electrolyte Solution 2220 ml IV Total 200 ml Other 1000 ml Output Urine Total 3375 ml Laboratory Tests Test 09/21/19 05:45 09/21/19 06:11 09/21/19 06:27 09/21/19 07:40 Urine Collection Type VOID Urine Color YELLOW Urine Appearance CLOUDY Urine Bilirubin NEGATIVE MG/DL Urine Ketones NEGATIVE Urine Specific [place] 1.025 Urine pH 5 Urine Protein 15 mg/dL Urine Urobilinogen NORMAL Urine Nitrate NEGATIVE Urine Leukocyte Esterase NEGATIVE Urine Blood 25 1+ Urine RBC 2-5 RBC/HPF Urine WBC 0-2 WBC/HPF Urine Squamous Epithelial Cells FEW #/HPF Urine Bacteria MANY Urine Glucose NORMAL Urine HCG, Qualitative NEGATIVE White Blood Count 16.4 10^3/uL Red Blood Count 4.32 10^6/uL Hemoglobin 13.4 g/dL Hematocrit 38.3 % Mean Corpuscular Volume 88.7 fL Mean Corpuscular Hemoglobin 31.0 pg Mean Corpuscular Hemoglobin Concent 35.0 g/dL Red Cell Distribution Width 12.1 % Platelet Count 219 10^3/uL Mean Platelet Volume 10.9 fL Neutrophils (%) (Auto) 90.2 % Lymphocytes (%) (Auto) 4.9 % Monocytes (%) (Auto) 4.4 % Neutrophils # (Auto) 14.8 10^3/uL Lymphocytes # (Auto) 0.8 10^3/uL Monocytes # (Auto) 0.7 10^3/uL Absolute Immature Granulocyte (auto 0.04 10^3 u/L Immature Granulocytes % 0.20 % Eosinophils % 0.2 % Basophils % 0.1 % Basophils # 0.0 10^3/uL Eosinophil Count 0.0 10^3/uL Prothrombin Time 10.2 SEC Prothrombin Time INR (Non-Therap) 1.0 Activated Partial Thromboplast Time 24.2 SEC Sodium Level 136 mmol/L Potassium Level 4.1 mmol/L Chloride Level 102.0 mmol/L Carbon Dioxide Level 26.9 mmol/L Anion Gap 11.2 Blood Urea Nitrogen 11 mg/dL Creatinine 0.77 mg/dL Estimated GFR () 108.0 BUN/Creatinine Ratio 14.0 Glucose Level 119 mg/dL Calcium Level 9.0 mg/dL Total Bilirubin 0.4 mg/dL Aspartate Amino Transf (AST/SGOT) 12 U/L Alanine Aminotransferase (ALT/SGPT) 20 U/L Alkaline Phosphatase 82 U/L Total Protein 7.1 g/dL Albumin 4.0 g/dL Globulin 3.1 Amylase Level 136 U/L Lipase 116 U/L Helicobacter pylori Screen POSITIVE Differential Total Cells Counted 100 #CELLS Segmented Neutrophils 88 % Lymphocytes 10 % Monocytes 2 % Differential Comment NORMAL Platelet Estimate ADEQUATE Platelet Morphology NORMAL Blood Morphology Comment NORMAL MORPHOLOGY Lactic Acid Level 1.7 mmol/L Test 09/22/19 07:49 White Blood Count 9.5 10^3/uL Red Blood Count 3.63 10^6/uL Hemoglobin 11.3 g/dL Hematocrit 33.2 % Mean Corpuscular Volume 91.5 fL Mean Corpuscular Hemoglobin 31.1 pg Mean Corpuscular Hemoglobin Concent 34.0 g/dL Red Cell Distribution Width 12.4 % Platelet Count 189 10^3/uL Mean Platelet Volume 11.0 fL Neutrophils (%) (Auto) 72.7 % Lymphocytes (%) (Auto) 18.3 % Monocytes (%) (Auto) 8.5 % Neutrophils # (Auto) 6.9 10^3/uL Lymphocytes # (Auto) 1.7 10^3/uL Monocytes # (Auto) 0.8 10^3/uL Absolute Immature Granulocyte (auto 0.01 10^3 u/L Immature Granulocytes % 0.10 % Eosinophils % 0.3 % Basophils % 0.1 % Basophils # 0.0 10^3/uL Eosinophil Count 0.0 10^3/uL Current Medications Medications (Trade) Dose Ordered Sig/Mare PRN Reason Start Time Stop Time Status Last Admin Acetaminophen/ Hydrocodone Bitart ([place] 5mg) 1 ea Q4HR PRN PAIN 4-6 09/21/19 11:30 10/21/19 11:29 09/22/19 10:48 Acetaminophen/ Hydrocodone Bitart ([place] 5mg) 2 ea Q4HR PRN PAIN 7-10 09/21/19 11:30 10/21/19 11:29 Enoxaparin Sodium (Lovenox) 40 mg Q24HRS 09/22/19 09:00 10/22/19 08:59 09/22/19 09:20 Levalbuterol HCl (Xopenex) 1.25 mg OT PRN WHEEZING 09/21/19 10:30 09/26/19 10:29 Ondansetron HCl (Zofran 4 Mg/2 ml Vial) 4 mg Q4H PRN NAUSEA / VOMITING 09/21/19 11:30 10/21/19 11:29 Potassium Chloride/Sodium Chloride 1,000 ml @ 75 mls/hr [id number] 09/21/19 11:30 10/21/19 11:29 09/22/19 02:40 Simethicone (Genasyme) 160 mg Q1HR PRN gas 09/21/19 22:30 10/21/19 22:29 09/22/19 11:44 Orders - AUGUST GOEL DO Simethicone (Genasyme) (09/21/19 22:30) Heart: Regular rate, Normal S1, Normal S2 Abdomen: Normal bowel sounds, Soft, Other (Dressings in place) Lungs: Clear to auscultation, Normal air movement Skin: No rashes Course (Sepsis Review) Date of Reassessment: Sep 22, 2019 Time of Reassessment: 0805 Blood Pressure Systolic: 119 Blood Pressure Diastolic: 67 Diagnosis Problems/Diagnosis: (1) Acute appendicitis Departure Discharge Date: Sep 22, 2019 AUGUST GOEL DO Sep 22, 2019 12:34
[2019-09-22 15:45] VITALS: BP 119/67
== END 2019-09-22 15:28 | disposition home or self-care (01) | DRG 342 ==
LOC: ER 05:25 → MS 08:01
PROVIDERS: ADMIT Internal Medicine; ATTEND Internal Medicine
PROC: 0DTJ4ZZ Resection of Appendix, Percutaneous Endoscopic Approach (ICD-10-PCS; principal; 2019-09-21 08:58)
DX: K35.80 Unspecified acute appendicitis (principal); N39.0 Urinary tract infection, site not specified; K52.9 Noninfective gastroenteritis and colitis, unspecified; Z91.018 Allergy to other foods
CPT/HCPCS: 36415; 74177; 80053; 81000; 81025; 82150; 83605; 83690; 85025; 85610; 85730; 86677; 87040; 87086; 99285; A4217; G0378; J0330; J1100; J1170; J1650; J1885; J2001; J2405; J2543; J2710; J3010; J3490; J7030; J7050; J7120; Q9965; 88302; J1580

== ENCOUNTER 2019-10-01 14:29 | Emergency (ER) | payer BC ==
[~2019-10-01] VITALS: Ht 157.5 cm; Wt 77.1 kg
[~2019-10-01 14:29] MED LIST changes: +ALBU8.5H7 IH; +LORA10TA75 PO
[2019-10-01 15:14] VITALS: BP 111/72
[2019-10-01 15:17] VITALS: BP 111/72
--- NOTE | 2019-10-01 17:25 | ER.PDOC ---
General Chief Complaint: Wound Recheck/Suture Removal Stated Complaint: WOUND CARE Time seen by MD: 17:19 Source: patient Exam Limitations: no limitations History of Present Illness Initial Procedure Done In ER: Wounf opened up today Treated In Another ED/Practice: No Days Prior To Arrival: Had Appy about 9 days ago and wound opened up today. Allergies: Coded Allergies: banana (Unverified Allergy, Unknown, MOUTH ITCHES, 05/18/18) Uncoded Allergies: NKDA (Allergy, Unknown, 08/03/13) Home Meds Active Scripts Loratadine (CLARITIN) 10 Mg Tablet, 1 TAB PO QD for allergy symptoms for 30 Days, #30 TAB 0 Refills Prov:EFRAIN GARCIA MD 09/21/19 Albuterol Sulfate (PROAIR HFA) 8.5 Gm Hfa.aer.ad, 8.5 GM IH PRN PRN for SHORTNESS BREATH for 30 Days, INHALATION Prov:EFRAIN GARCIA MD 09/21/19 Past Medical History Medical History: no pertinent history Surgical History: appendectomy Social History Alcohol Use: rarely Drug Use: none Constitutional: no symptoms reported Respiratory: no symptoms reported Cardiovascular: no symptoms reported Gastrointestinal: no symptoms reported Skin: see HPI All Other Systems: Reviewed and Negative Physical Exam General Appearance: alert, no distress Neuro/Vascular/Tendon: no vascular compromise, sensation nml, no tendon injury, nml ROM Skin: healing wound Neck/Back: nml inspection, non-tender, painless ROM Respiratory: chest non-tender, no resp. distress, breath sounds nml CVS: reg. rate & rhythm, heart sounds nml Abdomen: non-tender, no organomegaly Comments Lower end of surgical wound above the umbilicus opened up. No wound discharge. Results/Orders Results/Orders Vital Signs Date Time Temp Pulse Resp B/P (MAP) Pulse Ox O2 Delivery O2 Flow Rate FiO2 10/01/19 15:17 98.2 83 18 10/01/19 15:14 98.2 83 18 111/72 (85) 98 Room Air 10/01/19 14:38 98.2 83 18 98 Progress Progress Spoke with Dr. Mckeon, will dress wound and patient will follow up with him in the office. Course Sepsis Screening Results: Posi: POSITIVE SEPSIS RISK Sepsis Qualifier/Stage: NO DEFINITE RISK Duration or Total Time Spent w: 45 mins Vitals & review Data Vital Sign - Last 24 Hours 10/01/19 10/01/19 10/01/19 14:38 15:14 15:17 Temp 98.2 98.2 98.2 Pulse 83 83 83 Resp 18 18 18 B/P (MAP) 111/72 (85) Pulse Ox 98 98 O2 Delivery Room Air LEVEL 1 SEPSIS INFECTION CRITE: ABX Therapy, Recent Invasive Procedure LEVEL 2-SIRS (LIST ALL THAT AP: [id number] Cardiovascular Evidence: Not Assessed or None Hematologic Evidence: None/Not assessed Hepatic Evidence: None/Not assessed Metabolic Evidence: None/Not assessed Neurological Evidence: None/Not assessed Respiratory Evidence: None/Not assessed Renal Evidence: None/Not assessed O2 Sat by Pulse Oximetry: 98 Departure Time of Disposition: 17:23 Disposition: 01 HOME, SELF-CARE Impression: Primary Impression: Encounter for postoperative wound check Condition: Stable Referrals: PCP,UNKNOWN (PCP) PRIMARY CARE PROVIDER Additional Instructions: F/U with Dr. Mckeon tomorrow, call for appointment time. Duration or Time Spent with Pa: 10 mins CORIN HAN MD Oct 01, 2019 17:25
== END 2019-10-01 17:27 | disposition home or self-care (01) ==
LOC: ER 14:29
DX: Z48.01 Encounter for change or removal of surgical wound dressing (principal); Z79.899 Other long term (current) drug therapy
CPT/HCPCS: 99281